=== PATIENT | male | born 1965 | race Caucasian/White ===

== ENCOUNTER 2023-11-22 14:10 | Outpatient (AMB) | payer BC, SELFPAY ==
--- NOTE | 2023-11-22 14:12 | MHC.PC.OV ---
Vital Signs 11/22/23 14:33 Height 5 ft 8.27 in Weight 195 lb 2 oz BMI 29.4 BP 106/64 Blood Pressure Location Rt brachial Position Sitting Respiration 14 Pulse 81 Pulse Source Pulse Oximeter Pulse Oximetry (%) 96 Oxygen Delivery Method Room Air Intake Visit Reasons: [facility] Intake Note: Patient is here for [place] [facility] [place] [facility] [place]. Patient was last seent [place] [facility] [place] 05/04/[place]22 by Cyndie Wyatt NP. Provider Network Manager Required: No Accompanied by: Self / Same As Patient Allergies No Known Allergies Allergy (Verified 11/22/23 14:30) Tobacco use date assessed: 11/22/23 Dental Screening Dental Screen Date: 11/22/23 Did you have a dental visit in the last 12 months?: Yes Did you have a dental problem in the last 6 months where you did not have access to dental care?: No Was dental information given to patient?: Patient has dentist HPI HPI Comments History of Present Illness Details The patient is a 58-year-old male with a past medical history of seasonal allergies Dupuytren's contracture presenting for follow-up Transferring from [facility] before that Following with urology for elevated psa and microhematuria. Following with Dr Riley. MRI appeared to have two cancerous lesions. He had biopsy that was negative. Plan for q6 month PSA at this point. At his visit in 2022 he had Dupuytren's contracture. Saw [facility] at that time. Colonoscopy at 49 ROS CONSTITUTIONAL: Denies weight loss, fever and chills. HEENT: Denies changes in vision and hearing. RESPIRATORY: Denies SOB and cough. CV: Denies palpitations and CP GI: Denies abdominal pain, nausea, vomiting and diarrhea. : Denies dysuria and urinary frequency. MSK: Denies new myalgia and joint pain. SKIN: Denies rash and pruritus. NEUROLOGICAL: Denies headache PSYCHIATRIC: Denies recent changes in mood. PHYSICAL EXAM: GENERAL: Alert and oriented x 3. NAD EYES: EOMI. Anicteric. HENT: Moist mucous membranes. No scleral icterus. No cervical lymphadenopathy. LUNGS: Clear to auscultation bilaterally. CARDIOVASCULAR: Regular rate and rhythm. No murmur. No JVD. ABDOMEN: Soft, non-tender +bs EXTREMITIES: No edema. Non-tender. SKIN: No rashes or lesions. Warm. NEUROLOGIC: No focal neurological deficits. CN II-XII grossly intact PSYCHIATRIC: Cooperative. Appropriate mood and affect [facility] Medical History Dupuytren's contracture of hand Seasonal allergies Surgical History No pertinent past surgical history Social History Household Members: Spouse and Children Housing: House Are you a primary care program resident to a significant other at home: No Do you presently have visiting nurse or other home services: No Patient Tobacco Use Status: Current someday Tobacco user Tobacco use type: Cigar and Pipe Years Smoked: 7 e-Cigarette/Vaping Use: Never Used service: No Current occupational status: employed Current occupation: registered nurse [employer] Current occupational exposures/hazards: Yes (Dog bite) Cognitive needs: No Hearing needs: No Vision needs: No Questionnaire PHQ-9 Over the last 2 weeks, how often have you been bothered by any of the following problems? 1. Little interest or pleasure in doing things: not at all 2. Feeling down, depressed, or hopeless: not at all 3. Trouble falling or staying asleep, or sleeping too much: not at all 4. Feeling tired or having little energy: not at all 5. Poor appetite or overeating: not at all 6. Feeling bad about yourself - or that you are a failure or have let yourself or your family down: not at all 7. Trouble concentrating on things, such as reading the newspaper or watching television: not at all 8. Moving or speaking so slowly that other people could have noticed. Or the opposite - being so fidgety or restless that you have been moving around a lot more than usual: not at all 9. Thoughts that you would be better off or of hurting yourself in some way: not at all Total score: 0 Depression Screening Interpretation: Negative (neg) Depression Screening Done: Yes 65015 - PHQ-9 Billing: Yes Source: Developed by Drs. Tavo Bullard, Roxy Rae, Meng Atwood and colleagues, with an educational raeann from [employer]. Thrive Questionnaire Date Thrive assessed: 11/22/23 I am a: Patient What is your living situation today?: I have a steady place to live Within the past 12 months, did the food you bought not last and you didn't have the money to get more?: Never true Within the past 12 months, did you worry whether your food would run out before you got money to buy more?: Never true Do you have trouble paying for medicines?: No Do you have trouble getting transportation to medical appointments?: No Do you have trouble paying your heating and electricity bill?: No Do you have trouble taking care of your child, family member or friend?: No Do you have trouble with day-to-day activities such as bathing, preparing meals, shopping, managing finances, etc.?: No Are you currently unemployed and looking for a job?: No Are you interested in more education?: No Please select the resources that you would like help with: None Currently or been in a relationship where the following occur: No concerns reported THRIVE Score: 0 AUDIT C Alcohol Use Questionnaire (AUDIT-C) 1. How often do you have a drink containing alcohol?: Never Total Score: 0 CELESTE-7 AMB Questionnaire CELESTE-7 Date CELESTE - 7 assessed: 11/22/23 Feeling nervous, anxious, or on edge: 0 = Not at all Not being able to stop or control worryin = Not at all Worrying too much about different things: 0 = Not at all Trouble relaxin = Not at all Being so restless that it is hard to sit still: 0 = Not at all Becoming easily annoyed or irritable: 0 = Not at all Feeling afraid as if something awful might happen: 0 = Not at all Total CELESTE-7 score (0-4 normal; 5-9 mild; 10-14 moderate; 15-21 severe): 0 Source: Developed by Drs. Tavo Bullard, Roxy Rae, Meng Atwood and colleagues, with an educational raeann from [employer]. CELESTE-7 Assessment Billing CELESTE-7 Assessment Tool: CELESTE-7 Assessment 09464 Physical exam (Primary Care) Vital Signs: Last Vital Signs Pulse 81 11/22/23 14:33 Resp 14 11/22/23 14:33 BP 106/64 11/22/23 14:33 Pulse Ox 96 11/22/23 14:33 Oxygen Delivery Method Room Air 11/22/23 14:33 BMI result Body Mass Index 29.4 Tobacco/Smoking Status: Tobacco use Status Tobacco use date assessed 11/22/23 11/22/23 14:35 Patient Tobacco Use Status Current someday Tobacco 11/22/23 14:35 Tobacco use type Pipe,Cigar 11/22/23 14:35 e-Cigarette/Vaping Use Never Used 11/22/23 14:35 PHQ-9: PHQ-9 Score PHQ-9: Total score 0 11/22/23 14:35 Depression Screening Interpretation: Negative (neg) Thrive Assessment: Date of Thrive Assessment Date Thrive assessed 11/22/23 11/22/23 14:12 Currently or been in a relationship where the following occur: No concerns reported Assessment and Plan Assessment & Plan (1) Screening, deficiency anemia, iron: Code(s): Z13.0 - Encounter for screening for diseases of the blood and blood-forming organs and certain disorders involving the immune mechanism (2) Screening for metabolic disorder: Code(s): Z13.228 - Encounter for screening for other metabolic disorders (3) Elevated PSA: Code(s): R97.20 - Elevated prostate specific antigen [PSA] Plan: continue follow up with urology (4) Screening for hyperlipidemia: Code(s): Z13.220 - Encounter for screening for lipoid disorders Orders: Orders Lipid Panel Today R97.20 - Elevated prostate specific antigen [PSA], Z13.0 - Encounter for screening for diseases of the blood and blood-forming organs and certain disorders involving the immune mechanism, Z13.220 - Encounter for screening for lipoid disorders, Z13.228 - Encounter for screening for other metabolic disorders Complete Blood Count Auto Diff Today R97.20 - Elevated prostate specific antigen [PSA], Z13.0 - Encounter for screening for diseases of the blood and blood-forming organs and certain disorders involving the immune mechanism, Z13.220 - Encounter for screening for lipoid disorders, Z13.228 - Encounter for screening for other metabolic disorders Comprehensive Met. Panel Today R97.20 - Elevated prostate specific antigen [PSA], Z13.0 - Encounter for screening for diseases of the blood and blood-forming organs and certain disorders involving the immune mechanism, Z13.220 - Encounter for screening for lipoid disorders, Z13.228 - Encounter for screening for other metabolic disorders Coding Level of Care Code Est Pt Level 4 (48334) Complex EM visit Add On G2211 Diagnoses Screening, deficiency anemia, iron Z13.0 Screening for metabolic disorder Z13.228 Elevated PSA R97.20 Screening for hyperlipidemia Z13.220 Additional Codes CELESTE-7 Assessment Billing - CELESTE-7 Assessment Tool: CELESTE-7 Assessment 77340 ([id number])
[2023-11-22 14:33] VITALS: BP 106/64; PULSE 81; RESP 14; O2SAT 96; BMI 29.4
== END 2023-11-22 14:52 | disposition home or self-care (01) ==
PROVIDERS: Visit Provider Internal Medicine
DX: R97.20 Elevated prostate specific antigen [PSA] (principal); Z13.0 Encounter for screening for diseases of the blood and blood-forming organs and certain disorders involving the immune mechanism; Z13.228 Encounter for screening for other metabolic disorders; Z13.220 Encounter for screening for lipoid disorders
CPT/HCPCS: 99214

== ENCOUNTER 2023-11-22 14:57 | Outpatient (REF) | payer BC, SELFPAY ==
[2023-11-22 17:34] LABS: MANUAL DIFF FLAG NO
[2023-11-22 17:37] LABS: Basophils Absolute Auto 0.1 X10*3/uL (0.0-0.2); Basophils Percent Auto 0.7 % (0-2); Eosinophils Absolute Auto 0.2 X10*3/uL (0.0-0.4); Eosinophils Percent Auto 2.4 % (0-4); Hematocrit 41.3 % (42.0-52.0); Hemoglobin 14.7 g/dl (14.0-18.0); Imm Gran Abs Auto 0.01 X10*3/uL (0.00-0.03); Imm Gran Pct Auto 0.1 % (0.0-0.4); Lymphocytes Absolute Auto 1.9 X10*3/uL (1.2-4.9); Lymphocytes Percent Auto 27.8 % (20-40); Mean Corpuscular HGB Conc 35.6 g/dl (31.0-36.0); Mean Corpuscular Hemoglobin 30.2 pg (27.0-33.0); Mean Platelet Volume 10.6 fL (9.4-12.4); Monocytes Absolute Auto 0.4 X10*3/uL (0.1-1.2); Monocytes Percent Auto 6.1 % (2-11); Neutrophils Absolute Auto 4.2 x10*3/uL (2.0-8.3); Neutrophils Percent Auto 62.9 % (45-73); Platelet Count 272 X10*3/uL (160-400); Red Blood Count 4.86 X10*6/uL (4.60-5.80); Red Cell Distribution Width 12.7 % (11.0-16.0); White Blood Count 6.7 X10*3/uL (4.8-10.8)
[2023-11-22 17:49] LABS: Alanine Aminotransferase 32 U/L (0-40); Albumin Level 4.1 g/dL (3.5-5.0); Alkaline Phosphatase 62 U/L (39-117); Anion Gap 12 (12-20); Aspartate Amino Transferase 22 U/L (5-37); Bilirubin Total 0.3 mg/dL (0.0-1.0); Blood Urea Nitrogen 24 mg/dL (9-16); Calcium 9.2 mg/dL (8.4-10.2); Carbon Dioxide 24 mmol/L (22-29); Chloride 107 mmol/L (96-108); Cholesterol 159 mg/dL (<200); Estimated Glomerular Filt Rate 57; Glucose Random 116 mg/dL (60-115); HDL Cholesterol 40 mg/dL (>40); LDL Cholesterol Calculated 96 mg/dL (<100); Potassium 3.8 mmol/L (3.3-5.1); Sodium 139 mmol/L (135-145); Total Protein 6.9 g/dL (6.5-8.0); Triglycerides 119 mg/dL (<150)
== END 2023-11-22 14:58 | disposition home or self-care (01) ==
LOC: HO.WFDLDS 14:57
PROVIDERS: Visit Provider Internal Medicine
DX: Z13.0 Encounter for screening for diseases of the blood and blood-forming organs and certain disorders involving the immune mechanism (principal); Z13.228 Encounter for screening for other metabolic disorders; R97.20 Elevated prostate specific antigen [PSA]; Z13.220 Encounter for screening for lipoid disorders
CPT/HCPCS: 36415; 80053; 80061; 85025

== ENCOUNTER 2024-06-08 08:16 | Outpatient (AMB) | payer BC, SELFPAY ==
--- NOTE | 2024-06-08 08:18 | A.OFFPC_ITS ---
Vital Signs 06/08/24 08:22 Height 5 ft 8.27 in Weight 198 lb 4 oz BMI 29.9 BP 108/64 Blood Pressure Location Lt brachial Position Sitting Respiration 14 Pulse 80 Pulse Source Pulse Oximeter Pulse Oximetry (%) 98 Oxygen Delivery Method Room Air Intake Visit Reasons: physical exam Intake Note: Physical Allergies No Known Allergies Allergy (Verified 06/08/24 08:19) Medication List - Last Reconciled 06/08/24 by Julieth Perez MD fluticasone propionate 50 mcg/actuation 2 sprays intranasal DAILY loratadine (Claritin) 10 mg PO DAILY Tobacco use date assessed: 06/08/24 Dental Screening Dental Screen Date: 11/22/23 HPI HPI Comments History of Present Illness Details The patient is a 58-year-old male with a past medical history of seasonal allergies Dupuytren's contracture presenting for annual exam Following with urology for elevated psa and microhematuria-upcoming appt. Following with Dr Riley. MRI appeared to have two cancerous lesions. He had biopsy that was negative. Plan for q6 month PSA at this point. At his visit in 2022 he had Dupuytren's contracture. Saw [facility] at that time. 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 Has intermittent hip and knee pain. xrays ordered Colonoscopy at 49 turning 59 in August ROS CONSTITUTIONAL: Denies weight loss, fever and chills. HEENT: Denies changes in vision and hearing. RESPIRATORY: Denies SOB and cough. CV: Denies palpitations and CP GI: Denies abdominal pain, nausea, vomiting and diarrhea. : Denies dysuria and urinary frequency. MSK: see HPI SKIN: Denies rash and pruritus. NEUROLOGICAL: Denies headache PSYCHIATRIC: Denies recent changes in mood. PHYSICAL EXAM: GENERAL: Alert and oriented x 3. NAD EYES: EOMI. Anicteric. HENT: Moist mucous membranes. No scleral icterus. No cervical lymphadenopathy. LUNGS: Clear to auscultation bilaterally. CARDIOVASCULAR: Regular rate and rhythm. No murmur. No JVD. ABDOMEN: Soft, non-tender +bs EXTREMITIES: No edema. Non-tender. SKIN: No rashes or lesions. Warm. NEUROLOGIC: No focal neurological deficits. CN II-XII grossly intact PSYCHIATRIC: Cooperative. Appropriate mood and affect [facility] Medical History Dupuytren's contracture of hand Seasonal allergies Surgical History No pertinent past surgical history Social History Household Members: Spouse and Children Housing: House Are you a primary wild animal caretaker to a significant other at home: No Do you presently have visiting nurse or other home services: No 75 years or older and lives alone: No Patient Tobacco Use Status: Current someday Tobacco user Tobacco use type: Cigar and Pipe Years Smoked: 7 e-Cigarette/Vaping Use: Never Used service: No Current occupational status: employed 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 1. Little interest or pleasure in doing things: not at all 2. Feeling down, depressed, or hopeless: not at all 3. Trouble falling or staying asleep, or sleeping too much: not at all 4. Feeling tired or having little energy: not at all 5. Poor appetite or overeating: not at all 6. Feeling bad about yourself - or that you are a failure or have let yourself or your family down: not at all 7. Trouble concentrating on things, such as reading the newspaper or watching television: not at all 8. Moving or speaking so slowly that other people could have noticed. Or the opposite - being so fidgety or restless that you have been moving around a lot more than usual: not at all 9. Thoughts that you would be better off or of hurting yourself in some way: not at all Total score: 0 Depression Screening Interpretation: Negative Depression Screening Done: Yes 28199 - PHQ-9 Billing: Yes Source: Developed by Drs. Tavo Bullard, Roxy Rae, Meng Atwood and colleagues, with an educational raeann from [employer]. Thrive Questionnaire Date Thrive assessed: 06/01/24 I am a: Patient What is your living situation today?: I have a steady place to live Within the past 12 months, did the food you bought not last and you didn't have the money to get more?: Never true Within the past 12 months, did you worry whether your food would run out before you got money to buy more?: Never true Do you have trouble paying for medicines?: No Do you have trouble getting transportation to medical appointments?: No Do you have trouble paying your heating and electricity bill?: No Do you have trouble taking care of your child, family member or friend?: No Do you have trouble with day-to-day activities such as bathing, preparing meals, shopping, managing finances, etc.?: No Are you currently unemployed and looking for a job?: No Are you interested in more education?: No Please select the resources that you would like help with: None Currently or been in a relationship where the following occur: No concerns reported THRIVE Score: 0 AUDIT C Alcohol Use Questionnaire (AUDIT-C) 1. How often do you have a drink containing alcohol?: Never Total Score: 0 CELESTE-7 AMB Questionnaire CELESTE-7 Date CELESTE - 7 assessed: 06/08/24 Feeling nervous, anxious, or on edge: 0 = Not at all Not being able to stop or control worryin = Not at all Worrying too much about different things: 0 = Not at all Trouble relaxin = Not at all Being so restless that it is hard to sit still: 0 = Not at all Becoming easily annoyed or irritable: 0 = Not at all Feeling afraid as if something awful might happen: 0 = Not at all Total CELESTE-7 score (0-4 normal; 5-9 mild; 10-14 moderate; 15-21 severe): 0 Source: Developed by Drs. Tavo Bullard, Roxy Rae, Meng Atwood and colleagues, with an educational raeann from [employer]. CELESTE-7 Assessment Billing CELESTE-7 Assessment Tool: CELESTE-7 Assessment 24085 Physical exam (Primary Care) Vital Signs: Last Vital Signs Pulse 80 06/08/24 08:22 Resp 14 06/08/24 08:22 BP 108/64 06/08/24 08:22 Pulse Ox 98 06/08/24 08:22 Oxygen Delivery Method Room Air 06/08/24 08:22 BMI result Body Mass Index 29.9 Tobacco/Smoking Status: Tobacco use Status Tobacco use date assessed 06/08/24 06/08/24 08:25 Patient Tobacco Use Status Current someday Tobacco 06/08/24 08:25 Tobacco use type Pipe,Cigar 06/08/24 08:25 e-Cigarette/Vaping Use Never Used 06/08/24 08:25 PHQ-9: PHQ-9 Score PHQ-9: Total score 0 06/08/24 08:25 Depression Screening Interpretation: Negative Thrive Assessment: Date of Thrive Assessment Date Thrive assessed 06/01/24 06/08/24 08:25 Currently or been in a relationship where the following occur: No concerns reported Coding Level of Care Code Est Pt Prev Care 40-64y(21898) Diagnoses Physical exam Z00.00 Elevated PSA R97.20 Additional Codes CELESTE-7 Assessment Billing - CELESTE-7 Assessment Tool: CELESTE-7 Assessment 11741 ([id number]) PHQ-9 - 12795 - PHQ-9 Billing: Yes ([id number]) Assessment & Plan Assessment & Plan (1) Physical exam: Code(s): Z00.00 - Encounter for general adult medical examination without abnormal f indings (2) Elevated PSA: Code(s): R97.20 - Elevated prostate specific antigen [PSA] Category: Medical Plan 58 y/o for physical Interval history reviewed chronic medical conditions reviewed and stable medications reconciled hip, knee pain-xrays ordered Orders: Orders XR knee standing BI Today M25.551 - Pain in right hip, M25.552 - Pain in left hip, M25.561 - Pain in right knee, M25.562 - Pain in left knee XR hips JOHANA min 3V Today M25.551 - Pain in right hip, M25.552 - Pain in left hip, M25.561 - Pain in right knee, M25.562 - Pain in left knee Referrals Gastroenterology Referral Z12.11 - Encounter for screening for malignant neoplasm of colon
[2024-06-08 08:22] VITALS: BP 108/64; PULSE 80; RESP 14; O2SAT 98; BMI 29.9
== END 2024-06-08 09:17 | disposition home or self-care (01) ==
LOC: HO.HMCFM 08:17
PROVIDERS: PCP Internal Medicine; Visit Provider Internal Medicine
DX: Z00.00 Encounter for general adult medical examination without abnormal findings (principal); R97.20 Elevated prostate specific antigen [PSA]

== ENCOUNTER → 2024-06-08 08:16 | Outpatient (BNVA) | payer BC, SELFPAY | PROVIDERS: PCP Internal Medicine; Visit Provider Internal Medicine | DX: Z00.00 Encounter for general adult medical examination without abnormal findings (principal); M72.0 Palmar fascial fibromatosis [Dupuytren]; R97.20 Elevated prostate specific antigen [PSA]; M25.551 Pain in right hip; M25.552 Pain in left hip; M25.561 Pain in right knee; M25.562 Pain in left knee; Z91.09 Other allergy status, other than to drugs and biological substances | CPT/HCPCS: 96127 ==

== ENCOUNTER 2024-06-12 15:45 | Outpatient (REF) | payer BC, SELFPAY ==
--- NOTE | ~2024-06-12 | XR_ITS ---
EXAMINATION: XR KNEE AP STANDING CLINICAL INFORMATION: M25.561 - Pain in right knee COMPARISON: None available. TECHNIQUE: AP bilateral standing view of the knees was obtained. FINDINGS: No fracture or joint effusion. No bone lesions. Alignment is anatomic. Joint spaces are maintained. Normal-appearing soft tissues. XR/XR knee standing BI IMPRESSION: Normal AP view bilateral knees. Electronically signed by: Ediosn Mariano MD 06/15/2024 08:48 AM EDT
--- NOTE | ~2024-06-12 | XR_ITS ---
EXAMINATION: XR BILATERAL HIPS WITH AP PELVIS CLINICAL INFORMATION: M25.551 - Pain in right hip COMPARISON: None available. TECHNIQUE: AP and frog-leg lateral views of each hip. FINDINGS: No fracture, dislocation, or suspicious bone lesion. There is normal alignment. There are mild changes of degenerative arthritis in both hip joints, with minimal superolateral acetabular spurs, and tiny subcapital spurs. Joint spaces are grossly maintained. There are vasectomy clips noted. Soft tissues appear normal. 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 Electronically signed by: Edison Mariano MD 06/15/2024 08:24 AM EDT
== END 2024-06-12 15:46 | disposition home or self-care (01) ==
LOC: HO.HMGCX 15:45
PROVIDERS: PCP Internal Medicine; Visit Provider Internal Medicine
DX: M25.551 Pain in right hip (principal); M25.552 Pain in left hip; M25.561 Pain in right knee; M25.562 Pain in left knee
CPT/HCPCS: 73522; 73565

== ENCOUNTER → 2024-06-12 15:48 | Outpatient (BNV) | payer BC, SELFPAY | PROVIDERS: PCP Internal Medicine; Visit Provider Radiology Diagnostic Radiology | DX: M25.551 Pain in right hip (principal); M25.561 Pain in right knee | CPT/HCPCS: 73522; 73565 ==